=== PATIENT | male | born 1955 | race Caucasian/White ===

== ENCOUNTER 2017-03-18 11:19 | Emergency (ER) | payer SELFPAY ==
[~2017-03-18] VITALS: Ht 182.8 cm; Wt 77.1 kg
[~2017-03-18 11:19] MED LIST: ANTIVERT/2525 M1 PO; CLARITIN10 MG PO; FLONASE ALLERG9.9 ML NAS; PREDNISONE10 MG PO
[2017-03-18 11:53] LABS: BASO % 0.6 % (0.0-1.0); EOS # 0.1 10*3/uL (0.0-0.4); EOS % 1.1 % (1.0-4.0); HEMATOCRIT 43.4 % (42.0-52.0); HEMOGLOBIN 14.9 g/dl (14.0-18.0); LYMPH # 1.5 10*3/uL (1.3-4.4); LYMPH % 23.2 % (27.0-41.0); MEAN CORPUSCULAR HGB 30.2 pg (27.0-31.0); MEAN CORPUSCULAR HGB CONC 34.3 g/dl (33.0-37.0); MEAN PLATELET VOLUME 8.6 fl (9.6-12.3); MONO # 0.6 10*3/uL (0.1-1.0); MONO % 8.6 % (3.0-9.0); NEUT # 4.3 10*3/uL (2.3-7.9); NEUT % 66.2 % (47.0-73.0); PLATELET COUNT AUTOMATED 226 10*3/uL (130-400); RED BLOOD COUNT 4.93 10*6/uL (4.50-5.90); RED CELL DISTRI WIDTH 13.3 % (0-14.5); WHITE BLOOD COUNT 6.5 10*3/uL (4.8-10.8)
[2017-03-18 12:10] LABS: ALBUMIN 3.1 gm/dl (3.1-4.5); ALKALINE PHOSPHATASE 95 U/L (45-117); BUN 6 mg/dl (7-24); CHLORIDE 104 mmol/L (98-107); SGOT/AST 27 IU/L (3-35); SGPT/ALT 27 U/L (12-78); SODIUM 137 mmol/L (136-145); TOTAL PROTEIN 6.8 gm/dL (6.4-8.2)
[2017-03-18 12:11] LABS: ETHYL ALCOHOL < 3.0 mg/dl (<3); TROPONIN I < 0.015 ng/ml (<0.045)
[2017-03-18 13:31] LABS: BILIRUBIN NEGATIVE (NEGATIVE); BLOOD NEGATIVE (NEGATIVE); CLARITY CLEAR (CLEAR); COLOR YELLOW (YELLOW); GLUCOSE NEGATIVE (NEGATIVE); KETONE NEGATIVE (NEGATIVE); LEUKO ESTERASE NEGATIVE (NEGATIVE); NITRITE NEGATIVE (NEGATIVE); UROBILINOGEN 0.2 E.U./dl (0.2-1.0)
[2017-03-18 13:42] LABS: URINE BARBITURATES < 200 (200ng/ml); URINE BENZODIAZEPINES < 200 (200ng/ml); URINE CANNABINOIDS (THC) < 50 (50ng/ml); URINE COCAINE < 300 (300ng/ml); URINE METHADONE < 300 (300ng/ml); URINE OPIATES < 300 (300ng/ml)
[2017-03-18 13:46] LABS: URINE AMPHETAMINES < 1000 (1000ng/ml)
[2017-03-18 13:47] LABS: EPITHELIAL CELLS 0-2; MUCOUS TRACE
[2017-03-18 13:54] LABS: URINE PHENCYCLIDINE < 25 (25ng/ml)
== END 2017-03-18 14:43 | disposition left against medical advice (07) ==
LOC: ED 11:19 → EDBD 11:20 → ED 11:20
PROVIDERS: Emergency Medicine
DX: R55 Syncope and collapse (principal); F17.200 Nicotine dependence, unspecified, uncomplicated; Z79.899 Other long term (current) drug therapy

== ENCOUNTER 2019-02-22 11:02 | Inpatient (IN) | payer MEDICAID ==
[~2019-02-22] VITALS: Ht 177.8 cm; Wt 53.6 kg
[2019-02-22 11:04] VITALS: BP 122/77
[2019-02-22 11:43] LABS: BASO % 0.2 % (0.0-1.0); EOS # 0.1 10*3/uL (0.0-0.4); EOS % 0.4 % (1.0-4.0); HEMATOCRIT 40.6 % (42.0-52.0); HEMOGLOBIN 14.1 g/dl (14.0-18.0); LYMPH # 0.8 10*3/uL (1.3-4.4); LYMPH % 5.7 % (27.0-41.0); MEAN CELL VOLUME 89.6 fl (80.0-94.0); MEAN CORPUSCULAR HGB 31.1 pg (27.0-31.0); MEAN CORPUSCULAR HGB CONC 34.7 g/dl (33.0-37.0); MEAN PLATELET VOLUME 9.5 fl (9.6-12.3); MONO # 1.3 10*3/uL (0.1-1.0); MONO % 9.5 % (3.0-9.0); NEUT # 11.8 10*3/uL (2.3-7.9); NEUT % 83.6 % (47.0-73.0); PLATELET COUNT AUTOMATED 236 10*3/uL (130-400); RED BLOOD COUNT 4.53 10*6/uL (4.50-5.90); RED CELL DISTRI WIDTH 12.2 % (0-14.5); WHITE BLOOD COUNT 14.1 10*3/uL (4.8-10.8)
[2019-02-22 11:54] LABS: ACT PARTIAL THROMBO TIME 31.2 SECONDS (20.0-32.1); INTERNATIONAL NORM RATIO 0.9 (2.0-3.5)
[2019-02-22 12:01] LABS: ALBUMIN 3.4 gm/dl (3.1-4.5); ALKALINE PHOSPHATASE 110 U/L (45-117); BUN 7 mg/dl (7-24); CHLORIDE 99 mmol/L (98-107); CREATININE 0.93 mg/dL (0.70-1.30); POTASSIUM 3.9 mmol/L (3.5-5.1); SGOT/AST 16 IU/L (3-35); SGPT/ALT 18 U/L (12-78); SODIUM 131 mmol/L (136-145); TOTAL PROTEIN 8.1 gm/dL (6.4-8.2)
[2019-02-22 12:08] LABS: TROPONIN I < 0.015 ng/ml (<0.045)
[2019-02-22 12:10] VITALS: BP 113/73
--- NOTE | 2019-02-22 13:03 | NUR ---
MED REC UPDATED. PT TAKES NO ROUTINE MEDICATIONS. IF MEDS ARE PRESCRIBED ON DISCHARGE, PLESE SEND TO [facility] IN [facility],
[2019-02-22 13:05] VITALS: BP 125/75
--- NOTE | 2019-02-22 13:05 | NUR ---
A 63, admitted to 5E, under the services of ALEK Barker DO with a diagnosis of SEPSIS, PNEUMONIA. Chief complaint is SOB, COMMON COLD SXS x2 WEEKS. Patient arrived via ambulatory from ER. Monitor applied. Initial assessment completed. Vital signs taken and recorded. ALEK BARKER DO notified of admission to the unit. Orders received. See assessment for past medical history, medications and allergies. Patient and/or family oriented to unit. [facility] visitation policy reviewed. Clothing/patient valuable form completed. JOSE GARCIA
--- NOTE | 2019-02-22 15:13 | NUR ---
LEFT MESSAGE FOR REGARDING NEW CONSULT. AWAITING CALL BACK.
[2019-02-22 16:00] VITALS: BP 107/61
--- NOTE | 2019-02-22 16:42 | NUR ---
CALLED BACK. ORDER FOR SPUTUM CULTURE REC'D. CUP AT BEDSIDE, PT ACKNOWLEDGES UNDERSTANDING.
[2019-02-22 20:00] VITALS: BP 126/74
[2019-02-23] VITALS: BP 131/76
--- NOTE | 2019-02-23 03:38 | NUR ---
NEW IV STARTED IN PATIENTS RIGHT FOREARM. #20 GAUGE. GREAT BLOOD RETURN. IV FLUIDS RESTARTED. CALL LIGHT WITHIN REACH
[2019-02-23 06:48] LABS: HEMATOCRIT 36.7 % (42.0-52.0); HEMOGLOBIN 12.3 g/dl (14.0-18.0); LYMPH # 0.7 10*3/uL (1.3-4.4); MEAN CELL VOLUME 90.8 fl (80.0-94.0); MEAN CORPUSCULAR HGB 30.4 pg (27.0-31.0); MEAN CORPUSCULAR HGB CONC 33.5 g/dl (33.0-37.0); MEAN PLATELET VOLUME 9.9 fl (9.6-12.3); MONO # 0.6 10*3/uL (0.1-1.0); MONO % 6.7 % (3.0-9.0); NEUT # 7.9 10*3/uL (2.3-7.9); NEUT % 85.5 % (47.0-73.0); PLATELET COUNT AUTOMATED 233 10*3/uL (130-400); RED BLOOD COUNT 4.04 10*6/uL (4.50-5.90); RED CELL DISTRI WIDTH 12.4 % (0-14.5); WHITE BLOOD COUNT 9.3 10*3/uL (4.8-10.8)
[2019-02-23 07:01] LABS: BUN 11 mg/dl (7-24); CHLORIDE 111 mmol/L (98-107); CHOLESTEROL 92 mg/dL (<200); CREATININE 0.95 mg/dL (0.70-1.30); POTASSIUM 3.8 mmol/L (3.5-5.1); SODIUM 141 mmol/L (136-145)
[2019-02-23 07:12] LABS: FREE T4 1.07 ng/dl (0.76-1.46); HDL CHOLESTEROL 32 mg/dl (40-60); LDL CHOLESTEROL 44 mg/dL (9-159); PHOSPHOROUS 1.6 mg/dL (2.5-4.9); THYROID STIM HORMONE (HS) 0.934 uIU/ml (0.358-4.75); TRIGLYCERIDES 82 mg/dl (<150); VLDL CHOLESTEROL 16 mg/dL (6-40)
[2019-02-23 08:00] VITALS: BP 130/70
--- NOTE | 2019-02-23 08:18 | NUR ---
PT RESTING IN BED/ NO DISTRESS NOTED. WILL MONITOR
[2019-02-23 08:19] LABS: VITAMIN D, 25-HYDROXY 34.6 ng/mL (30-100)
[2019-02-23 12:00] VITALS: BP 112/63
--- NOTE | 2019-02-23 12:32 | NUR ---
Binder Operator in to talk to patient. Patient states lives at HOME with FRIENDS. There are FEW steps in the home. Physician: NONE Pharmacy: [facility] Home health services: NONE Patient's level of ADLs: INDEPENDENT Patient has working utilities: YES DME: NONE Follow-up physician's appointment after d/c: WILL FIND ONE AFTER DISCHARGE AND FOLLOW UP Does patient want to access PORTAL?: NO Discharge plan PT STATES HE LIVES AT HOME WITH FRIENDS AND IS INDEPEDENT IN HIS CARE. DENIES THAT HE WILL HAVE NEEDS ON DISCHARGE. STATES HE WILL RETURN HOME WITH FRIENDS. WILL CONTINUE TO FOLLOW. STATES HE WILL HAVE A RIDE HOME.. DIDIER ESTRADA
--- NOTE | 2019-02-23 15:00 | NUR ---
ASSUMED CARE FOR THIS PT AT THIS TIME. PT C/O STUFFY NOSE AND PRODUCTIVE COUGH EXPECTORATING THICK SWANN MUCUS. JVD NOTED D/T COUGING. CALL LIGHT IN REACH.
[2019-02-23 16:00] VITALS: BP 117/65
[2019-02-23 20:00] VITALS: BP 101/68
[2019-02-24] VITALS: BP 121/62
[2019-02-24 08:00] VITALS: BP 126/78
--- NOTE | 2019-02-24 08:11 | NUR ---
PT RESITNG IN BED. NO DISTRESS NOTED. WILL MONITOR
--- NOTE | 2019-02-24 11:59 | NUR ---
PT STATES HE WILL RETURN HOME ON DISCHARGE WITH NO NEW NEEDS. WILL CONTINUE TO FOLLOW.
[2019-02-24 12:00] VITALS: BP 120/71
[2019-02-24 16:00] VITALS: BP 122/69
[2019-02-24 20:00] VITALS: BP 129/75
--- NOTE | 2019-02-24 20:15 | NUR ---
PT RESTING IN BED WITH HOB ELEVATED. RESP-EASY AND REGULAR. NO C/O AT THIS TIME. COWLITZ. CALL LIGHT IN REACH.
--- NOTE | 2019-02-24 22:00 | NUR ---
RESTING IN BED. RESP-EASY AND REGULAR. OXYGEN IN USE AT THIS TIME. CALL LIGHT IN REACH. NO C/O AT THIS TIME.
[2019-02-25] VITALS: BP 137/75
--- NOTE | 2019-02-25 00:30 | NUR ---
PT RESTING IN BED. RESP-EASY AND REGULAR. CALL LIGHT IN REACH. SEE SHIFT ASSESSMENT.
--- NOTE | 2019-02-25 04:00 | NUR ---
SLEEPING IN BED. RESP-EASY AND REGULAR. CALL LIGHT IN REACH.
--- NOTE | 2019-02-25 05:30 | NUR ---
RESTING IN BED WITH EYES CLOSED. RESPE-ASY AND REGULAR. CALL LIGHT IN REACH.
[2019-02-25 08:00] VITALS: BP 144/73
[2019-02-25] MEDS ORDERED: PREDNISONE10 MG PO (11:23)
[2019-02-25] MEDS ORDERED: MUCINEX ER600 MG PO (11:23)
[2019-02-25] MEDS ORDERED: ZITHROMAX500 MG PO (11:23)
--- NOTE | 2019-02-25 11:43 | NUR ---
Discharge instructions reviewed with patient/family. Patient receptive and verbalizes understanding. Follow-up care arranged. Written instructions given to patient/family. LES OWENS
--- NOTE | 2019-02-25 12:13 | NUR ---
PT CONTINUES TO DENY HOME NEEDS ON DISCHARGE. WILL CONTINUE TO FOLLOW.
== END 2019-02-25 11:43 | disposition home or self-care (01) | DRG 193 ==
LOC: ED 11:02 → 5E 11:58 → EDHOLD 11:58 → 5E 12:06
PROVIDERS: Emergency Medicine; ADMIT Internal Medicine
DX: J18.9 Pneumonia, unspecified organism (principal); A41.9 Sepsis, unspecified organism; E87.1 Hypo-osmolality and hyponatremia; J44.1 Chronic obstructive pulmonary disease with (acute) exacerbation; J44.0 Chronic obstructive pulmonary disease with (acute) lower respiratory infection; J20.9 Acute bronchitis, unspecified; D72.9 Disorder of white blood cells, unspecified; D72.810 Lymphocytopenia; F17.210 Nicotine dependence, cigarettes, uncomplicated; Z83.3 Family history of diabetes mellitus; Z83.49 Family history of other endocrine, nutritional and metabolic diseases; Z83.6 Family history of other diseases of the respiratory system; Z71.6 Tobacco abuse counseling

== ENCOUNTER → 2019-03-11 | Outpatient (CLI) | payer MEDICAID ==
[~2019-03-11] MED LIST changes: +MUCINEX ER600 MG PO; +ZITHROMAX500 MG PO
== END | disposition home or self-care (01) ==
LOC: RESCLI 00:54
DX: H91.11 Presbycusis, right ear (principal); R42 Dizziness and giddiness; R63.6 Underweight; F17.210 Nicotine dependence, cigarettes, uncomplicated; R09.89 Other specified symptoms and signs involving the circulatory and respiratory systems; J30.2 Other seasonal allergic rhinitis; Z71.89 Other specified counseling; Z79.899 Other long term (current) drug therapy

== ENCOUNTER 2019-05-22 13:35 | Emergency (ER) | payer MEDICAID ==
[~2019-05-22] VITALS: Ht 180.3 cm; Wt 59.0 kg
[2019-05-22 14:06] LABS: BASO # 0.1 10*3/uL (0.0-0.1); BASO % 0.9 % (0.0-1.0); EOS # 0.3 10*3/uL (0.0-0.4); EOS % 3.5 % (1.0-4.0); HEMATOCRIT 48.8 % (42.0-52.0); HEMOGLOBIN 16.1 g/dl (14.0-18.0); LYMPH # 2.5 10*3/uL (1.3-4.4); LYMPH % 31.3 % (27.0-41.0); MEAN CELL VOLUME 89.5 fl (80.0-94.0); MEAN CORPUSCULAR HGB 29.5 pg (27.0-31.0); MEAN PLATELET VOLUME 9.1 fl (9.6-12.3); MONO # 0.8 10*3/uL (0.1-1.0); MONO % 9.6 % (3.0-9.0); NEUT # 4.3 10*3/uL (2.3-7.9); NEUT % 53.7 % (47.0-73.0); PLATELET COUNT AUTOMATED 270 10*3/uL (130-400); RED BLOOD COUNT 5.45 10*6/uL (4.50-5.90); RED CELL DISTRI WIDTH 12.8 % (0-14.5); WHITE BLOOD COUNT 8.1 10*3/uL (4.8-10.8)
[2019-05-22 14:21] LABS: ALBUMIN 3.8 gm/dl (3.1-4.5); ALKALINE PHOSPHATASE 98 U/L (45-117); BUN 12 mg/dl (7-24); CHLORIDE 105 mmol/L (98-107); CREATININE 0.97 mg/dL (0.70-1.30); LIPASE 294 U/L (73-393); POTASSIUM 3.6 mmol/L (3.5-5.1); SGOT/AST 21 IU/L (3-35); SGPT/ALT 28 U/L (12-78); SODIUM 139 mmol/L (136-145); TOTAL PROTEIN 7.8 gm/dL (6.4-8.2)
[2019-05-22 14:22] LABS: TROPONIN I < 0.015 ng/ml (<0.045)
[2019-05-22 14:38] LABS: ACT PARTIAL THROMBO TIME 28.4 SECONDS (20.0-32.1); INTERNATIONAL NORM RATIO 0.9 (2.0-3.5)
[2019-05-22] MEDS ORDERED: ASPIR LOW81 MG PO (17:36)
== END 2019-05-22 17:35 | disposition left against medical advice (07) ==
LOC: ED 13:35
PROVIDERS: Emergency Medicine
DX: G45.9 Transient cerebral ischemic attack, unspecified (principal); Z79.899 Other long term (current) drug therapy; Z79.2 Long term (current) use of antibiotics; Z87.891 Personal history of nicotine dependence

== ENCOUNTER 2023-07-08 09:34 | Emergency (ER) | payer MEDICARE ==
[~2023-07-08] VITALS: Ht 177.8 cm; Wt 53.5 kg
[~2023-07-08 09:34] MED LIST changes: +ASPIR LOW81 MG PO
[2023-07-08 10:46] LABS: BASO # 0.1 10*3/uL (0.0-0.1); BASO % 0.5 % (0.0-1.0); EOS # 0.3 10*3/uL (0.0-0.4); EOS % 2.2 % (1.0-4.0); HEMATOCRIT 36.7 % (42.0-52.0); LYMPH # 1.5 10*3/uL (1.3-4.4); LYMPH % 9.6 % (27.0-41.0); MEAN CELL VOLUME 82.1 fl (80.0-94.0); MEAN CORPUSCULAR HGB 26.4 pg (27.0-31.0); MEAN CORPUSCULAR HGB CONC 32.2 g/dl (33.0-37.0); MEAN PLATELET VOLUME 8.2 fl (9.6-12.3); MONO # 1.4 10*3/uL (0.1-1.0); MONO % 8.9 % (3.0-9.0); NEUT # 11.9 10*3/uL (2.3-7.9); NEUT % 77.8 % (47.0-73.0); PLATELET COUNT AUTOMATED 567 10*3/uL (130-400); RED BLOOD COUNT 4.47 10*6/uL (4.50-5.90); RED CELL DISTRI WIDTH 13.2 % (0-14.5); WHITE BLOOD COUNT 15.3 10*3/uL (4.8-10.8)
[2023-07-08 11:04] LABS: ACT PARTIAL THROMBO TIME 33.9 SECONDS (20.0-32.1)
[2023-07-08 11:06] LABS: ALKALINE PHOSPHATASE 87 U/L (46-116); BUN 11 mg/dl (9-23); CHLORIDE 97 mmol/L (98-107); POTASSIUM 3.7 mmol/L (3.4-5.1); SGPT/ALT 14 U/L (5-49); TOTAL PROTEIN 8.3 gm/dL (6.0-8.0)
[2023-07-08] MEDS ORDERED: AVPAK AZITHROM250 M1 PO (11:26)
[2023-07-08] MEDS ORDERED: PREDNISONE20 M1 PO (11:26)
== END 2023-07-08 11:29 | disposition left against medical advice (07) ==
LOC: ED 09:34 → EDBD 09:38 → ED 11:29
PROVIDERS: Nurse Practitioner Family
DX: J44.1 Chronic obstructive pulmonary disease with (acute) exacerbation (principal); E87.1 Hypo-osmolality and hyponatremia; R91.8 Other nonspecific abnormal finding of lung field; Z53.29 Procedure and treatment not carried out because of patient's decision for other reasons; F17.200 Nicotine dependence, unspecified, uncomplicated

== ENCOUNTER → 2023-07-18 | Outpatient (CLI) | payer MEDICARE ==
[~2023-07-18] MED LIST changes: +AVPAK AZITHROM250 M1 PO; +IOHEXOL 300 MG/ML 100 ML VIAL IV ONE; +PREDNISONE20 M1 PO
== END | disposition home or self-care (01) ==
LOC: CT 16:00
PROVIDERS: ATTEND Internal Medicine Critical Care Medicine
DX: Z01.818 Encounter for other preprocedural examination (principal); R91.8 Other nonspecific abnormal finding of lung field; I25.10 Atherosclerotic heart disease of native coronary artery without angina pectoris; J98.4 Other disorders of lung; J43.9 Emphysema, unspecified; N26.1 Atrophy of kidney (terminal)

== ENCOUNTER → 2023-07-25 | Outpatient (CLI) | payer MEDICARE ==
[2023-07-25] VITALS (12 sets, daily range): BP systolic 98–118; BP diastolic 59–68
[~2023-07-25] MED LIST changes: +BP PO; +CHOLESTEROL PO; -IOHEXOL 300 MG/ML 100 ML VIAL IV ONE; +POTASSIUM PO
[2023-07-25 10:02] LABS: ACT PARTIAL THROMBO TIME 32.5 SECONDS (20.0-32.1)
== END | disposition home or self-care (01) ==
LOC: LAB 02:25 → CT 02:25
PROVIDERS: ATTEND Internal Medicine Critical Care Medicine
DX: J98.4 Other disorders of lung (principal); J44.9 Chronic obstructive pulmonary disease, unspecified; J98.11 Atelectasis; R22.2 Localized swelling, mass and lump, trunk; Z87.891 Personal history of nicotine dependence; Z79.01 Long term (current) use of anticoagulants

== ENCOUNTER 2023-10-30 06:30 | Inpatient (IN) | payer MEDICARE, MEDICAID ==
[~2023-10-30] VITALS: Ht 177.8 cm; Wt 51.7 kg
[2023-10-30 07:58] LABS: HEMATOCRIT 30.7 % (42.0-52.0); MEAN CELL VOLUME 84.6 fl (80.0-94.0); MEAN CORPUSCULAR HGB 27.8 pg (27.0-31.0); MEAN CORPUSCULAR HGB CONC 32.9 g/dl (33.0-37.0); MEAN PLATELET VOLUME 9.3 fl (9.6-12.3); PLATELET COUNT AUTOMATED 231 10*3/uL (130-400); RED BLOOD COUNT 3.63 10*6/uL (4.50-5.90); RED CELL DISTRI WIDTH 22.9 % (0-14.5); WHITE BLOOD COUNT 3.3 10*3/uL (4.8-10.8)
[2023-10-30 08:00] LABS: MANUAL DIFF REFLEX YES
[2023-10-30 08:09] LABS: ACT PARTIAL THROMBO TIME 30.6 SECONDS (20.0-32.1)
[2023-10-30 08:19] LABS: ALKALINE PHOSPHATASE 86 U/L (46-116); BUN 13 mg/dl (9-23); CHLORIDE 103 mmol/L (98-107); POTASSIUM 4.4 mmol/L (3.4-5.1); SGPT/ALT 9 U/L (5-49); TOTAL PROTEIN 7.7 gm/dL (6.0-8.0)
[2023-10-30 08:33] LABS: BASOPHILS 1 % (0-1); BURR CELLS FEW; PLATELET SUFFICIENCY NORMAL (NORMAL); POLYCHROMASIA SLIGHT; TOTAL CELLS COUNTED 100 #CELLS
[2023-10-30 09:07] VITALS: BP 159/92
[2023-10-30] MEDS ORDERED: IOHEXOL 300 MG/ML 100 ML VIAL IV ONE (09:10)
[2023-10-30] MEDS ORDERED: Acetaminophen/Hydrocodone 5 MG/325 MG TABLET PO PRN (10:50)
[2023-10-30] MEDS ORDERED: BISACODYL 5 MG TAB PO PRN (10:50)
[2023-10-30] MEDS ORDERED: ACETAMINOPHEN 325 MG TAB PO PRN (10:50)
[2023-10-30] MEDS ORDERED: Ondansetron Hydrochloride 4 MG/2 ML VIAL IV PRN (10:50)
[2023-10-30] MEDS ORDERED: MORPHINE Sulfate 2 MG/ML SYR IV PRN (10:50)
[2023-10-30] MEDS ORDERED: FERROUS GLUCON324 MG PO (10:54)
[2023-10-30] MEDS ORDERED: LISINOPRIL10 M1 PO (10:54)
[2023-10-30] MEDS ORDERED: ROSUVASTATIN CA20 MG PO (10:55)
[2023-10-30] MEDS ORDERED: MAGNESIUM SULFATE 50 ML IV ONE (11:50)
[2023-10-30] MEDS ORDERED: Ceftriaxone Sodium 10 ML IV ONE ×2 (12:00→15:35)
[2023-10-30] MEDS ORDERED: AZITHROMYCIN 250 ML IV SCH (12:00)
[2023-10-30] MEDS ORDERED: ANORO ELLIPTA1 EACH INH (13:12)
[2023-10-30] MEDS ORDERED: TRAMADOL HCL25 MG PO (13:13)
[2023-10-30 13:41] VITALS: BP 101/53
[2023-10-30] MEDS ORDERED: Nicotine 21 MG PATCH T SCH (15:30)
[2023-10-30 16:52] VITALS: BP 124/70
[2023-10-30 19:32] VITALS: BP 102/67
[2023-10-31] VITALS (10 sets, daily range): BP systolic 99–120; BP diastolic 55–78
[2023-10-31 05:51] LABS: ALKALINE PHOSPHATASE 79 U/L (46-116); BUN 11 mg/dl (9-23); CHLORIDE 103 mmol/L (98-107); CHOLESTEROL 86 mg/dL (<200); LDL CHOLESTEROL 45 mg/dL (9-159); POTASSIUM 4.3 mmol/L (3.4-5.1); SGPT/ALT 8 U/L (5-49); TOTAL PROTEIN 6.9 gm/dL (6.0-8.0); TRIGLYCERIDES 76 mg/dl (<150)
[2023-10-31 05:57] LABS: HEMATOCRIT 27.2 % (42.0-52.0); MEAN CORPUSCULAR HGB 28.1 pg (27.0-31.0); MEAN CORPUSCULAR HGB CONC 33.5 g/dl (33.0-37.0); MEAN PLATELET VOLUME 9.3 fl (9.6-12.3); PLATELET COUNT AUTOMATED 226 10*3/uL (130-400); RED BLOOD COUNT 3.24 10*6/uL (4.50-5.90); RED CELL DISTRI WIDTH 22.9 % (0-14.5)
[2023-10-31 06:01] LABS: MANUAL DIFF REFLEX YES
[2023-10-31 06:46] LABS: ACT PARTIAL THROMBO TIME 31.6 SECONDS (20.0-32.1)
[2023-10-31 07:17] LABS: PLATELET SUFFICIENCY NORMAL (NORMAL); TOTAL CELLS COUNTED 100 #CELLS
[2023-10-31 07:18] LABS: POLYCHROMASIA SLIGHT
[2023-10-31] MEDS ORDERED: Lidocaine Hydrochloride 4% 5 ML AMP NEB ONE (08:15)
[2023-10-31] MEDS ORDERED: Albuterol Sulfate 2.5 MG/0.5 ML VIAL NEB ONE ×2 (08:15→08:28)
[2023-10-31] MEDS ORDERED: SODIUM CHLORIDE 0.9% 1,000 ML IV ONE (08:23)
[2023-10-31] MEDS ORDERED: Lidocaine Hydrochloride 4% 5 ML AMP ONE (08:28)
[2023-10-31] MEDS ORDERED: Albuterol Sulf/Ipratropium 3 ML VIAL NEB ONE ×2 (08:50→09:09)
[2023-10-31] MEDS ORDERED: LISINOPRIL 10 MG TAB PO SCH (10:00)
[2023-10-31] MEDS ORDERED: Ceftriaxone Sodium 1 GM in SYRINGE INFUSION 10 ML IV SCH (10:00)
[2023-10-31] MEDS ORDERED: ANORO ELLIPTA INH SCH (10:00)
[2023-10-31] MEDS ORDERED: Ceftriaxone Sodium 2 GM,IV 1 EA in SYRINGE INFUSION 20 ML IV SCH (10:00)
[2023-10-31] MEDS ORDERED: ATORVASTATIN CALCIUM 80 MG TAB PO SCH (10:00)
[2023-10-31] MEDS ORDERED: Lidocaine Hydrochloride 2% 10 ML AMP IV ONE (17:34)
[2023-10-31] MEDS ORDERED: PROPOFOL 200 MG/20 ML VIAL IV ONE (17:34)
[2023-11-01 05:47] LABS: BUN 15 mg/dl (9-23); CHLORIDE 103 mmol/L (98-107); POTASSIUM 4.1 mmol/L (3.4-5.1)
[2023-11-01 06:02] LABS: BASO % 0.7 % (0.0-1.0); EOS # 0.1 10*3/uL (0.0-0.4); EOS % 1.4 % (1.0-4.0); HEMATOCRIT 25.9 % (42.0-52.0); LYMPH # 1.2 10*3/uL (1.3-4.4); LYMPH % 29.5 % (27.0-41.0); MEAN CELL VOLUME 84.4 fl (80.0-94.0); MEAN CORPUSCULAR HGB 27.7 pg (27.0-31.0); MEAN CORPUSCULAR HGB CONC 32.8 g/dl (33.0-37.0); MEAN PLATELET VOLUME 9.4 fl (9.6-12.3); MONO # 0.7 10*3/uL (0.1-1.0); MONO % 17.6 % (3.0-9.0); NEUT # 2.1 10*3/uL (2.3-7.9); NEUT % 50.1 % (47.0-73.0); PLATELET COUNT AUTOMATED 215 10*3/uL (130-400); RED BLOOD COUNT 3.07 10*6/uL (4.50-5.90); RED CELL DISTRI WIDTH 22.6 % (0-14.5); WHITE BLOOD COUNT 4.2 10*3/uL (4.8-10.8)
[2023-11-01 08:00] VITALS: BP 107/66
[2023-11-01 12:00] VITALS: BP 120/51
[2023-11-01 13:07] LABS: ACID FAST SPEC PROCESSING Concentration (.)
[2023-11-01 16:00] VITALS: BP 122/52
[2023-11-01 20:00] VITALS: BP 116/62
[2023-11-02] VITALS: BP 101/78
[2023-11-02 08:00] VITALS: BP 137/54
[2023-11-02 12:00] VITALS: BP 102/62
[2023-11-02] MEDS ORDERED: CIPRO500 MG PO (13:19)
[2023-11-02] MEDS ORDERED: CIPROFLOXACIN750 MG PO (13:28)
[2023-11-02] MEDS ORDERED: HEPARIN SODIUM 300 UNITS/3 ML SYR IV ONE (14:40)
== END 2023-11-02 15:16 | disposition home or self-care (01) | DRG 871 ==
LOC: ED 06:30 → EDHOLD 10:34 → 4E 10:34
PROVIDERS: Emergency Medicine; Internal Medicine Critical Care Medicine; Student in an Organized Health Care Education/Training Program; ADMIT Internal Medicine; ATTEND Internal Medicine
PROC: 0BC18ZZ Extirpation of Matter from Trachea, Via Natural or Artificial Opening Endoscopic (ICD-10-PCS; principal; 2023-10-31)
PROC: 0BC98ZZ Extirpation of Matter from Lingula Bronchus, Via Natural or Artificial Opening Endoscopic (ICD-10-PCS; 2023-10-31)
PROC: 0BC48ZZ Extirpation of Matter from Right Upper Lobe Bronchus, Via Natural or Artificial Opening Endoscopic (ICD-10-PCS; 2023-10-31)
PROC: 0BC88ZZ Extirpation of Matter from Left Upper Lobe Bronchus, Via Natural or Artificial Opening Endoscopic (ICD-10-PCS; 2023-10-31)
PROC: 0BC58ZZ Extirpation of Matter from Right Middle Lobe Bronchus, Via Natural or Artificial Opening Endoscopic (ICD-10-PCS; 2023-10-31)
PROC: 0BC38ZZ Extirpation of Matter from Right Main Bronchus, Via Natural or Artificial Opening Endoscopic (ICD-10-PCS; 2023-10-31)
PROC: 0BC78ZZ Extirpation of Matter from Left Main Bronchus, Via Natural or Artificial Opening Endoscopic (ICD-10-PCS; 2023-10-31)
PROC: 0BC68ZZ Extirpation of Matter from Right Lower Lobe Bronchus, Via Natural or Artificial Opening Endoscopic (ICD-10-PCS; 2023-10-31)
PROC: 0BCB8ZZ Extirpation of Matter from Left Lower Lobe Bronchus, Via Natural or Artificial Opening Endoscopic (ICD-10-PCS; 2023-10-31)
DX: A41.9 Sepsis, unspecified organism (principal); J18.9 Pneumonia, unspecified organism; E44.1 Mild protein-calorie malnutrition; R04.2 Hemoptysis; E87.1 Hypo-osmolality and hyponatremia; C34.11 Malignant neoplasm of upper lobe, right bronchus or lung; Z68.1 Body mass index [BMI] 19.9 or less, adult; J44.0 Chronic obstructive pulmonary disease with (acute) lower respiratory infection; R91.8 Other nonspecific abnormal finding of lung field; I10 Essential (primary) hypertension; E78.5 Hyperlipidemia, unspecified; T45.1X5A Adverse effect of antineoplastic and immunosuppressive drugs, initial encounter; D70.1 Agranulocytosis secondary to cancer chemotherapy; D64.9 Anemia, unspecified; R73.9 Hyperglycemia, unspecified; B96.89 Other specified bacterial agents as the cause of diseases classified elsewhere; E83.42 Hypomagnesemia; J43.9 Emphysema, unspecified; G89.3 Neoplasm related pain (acute) (chronic); R53.81 Other malaise; B96.5 Pseudomonas (aeruginosa) (mallei) (pseudomallei) as the cause of diseases classified elsewhere; Z85.118 Personal history of other malignant neoplasm of bronchus and lung; Z92.21 Personal history of antineoplastic chemotherapy; Z83.3 Family history of diabetes mellitus; Z83.6 Family history of other diseases of the respiratory system; Z86.73 Personal history of transient ischemic attack (TIA), and cerebral infarction without residual deficits

== ENCOUNTER 2023-11-30 12:39 | Emergency (ER) | payer MEDICARE, MEDICAID ==
[~2023-11-30] VITALS: Ht 177.8 cm; Wt 53.1 kg
[~2023-11-30 12:39] MED LIST changes: +ANORO ELLIPTA1 EACH INH; +CIPRO500 MG PO; +CIPROFLOXACIN750 MG PO; +FERROUS GLUCON324 MG PO; +LISINOPRIL10 M1 PO; +ROSUVASTATIN CA20 MG PO; +TRAMADOL HCL25 MG PO
[2023-11-30 14:59] LABS: BASO % 0.5 % (0.0-1.0); EOS # 0.4 10*3/uL (0.0-0.4); HEMATOCRIT 30.7 % (42.0-52.0); LYMPH # 1.2 10*3/uL (1.3-4.4); LYMPH % 21.8 % (27.0-41.0); MEAN CELL VOLUME 93.9 fl (80.0-94.0); MEAN CORPUSCULAR HGB 29.4 pg (27.0-31.0); MEAN CORPUSCULAR HGB CONC 31.3 g/dl (33.0-37.0); MEAN PLATELET VOLUME 9.4 fl (9.6-12.3); MONO # 0.3 10*3/uL (0.1-1.0); MONO % 5.6 % (3.0-9.0); NEUT # 3.5 10*3/uL (2.3-7.9); NEUT % 63.4 % (47.0-73.0); PLATELET COUNT AUTOMATED 308 10*3/uL (130-400); RED BLOOD COUNT 3.27 10*6/uL (4.50-5.90); RED CELL DISTRI WIDTH 19.7 % (0-14.5); WHITE BLOOD COUNT 5.5 10*3/uL (4.8-10.8)
[2023-11-30 15:09] LABS: ACT PARTIAL THROMBO TIME 31.6 SECONDS (20.0-32.1)
[2023-11-30 15:15] LABS: ALKALINE PHOSPHATASE 102 U/L (46-116); BUN 10 mg/dl (9-23); CHLORIDE 101 mmol/L (98-107); POTASSIUM 3.7 mmol/L (3.4-5.1); SGPT/ALT 9 U/L (5-49); TOTAL PROTEIN 8.2 gm/dL (6.0-8.0)
[2023-11-30] MEDS ORDERED: AZITHROMYCIN 250 MG TAB PO ONE (15:20)
[2023-11-30] MEDS ORDERED: AVPAK AZITHROM250 M1 PO (15:22)
[2023-11-30] MEDS ORDERED: OMNICEF300 MG PO (15:22)
[2023-11-30] MEDS ORDERED: MAGNESIUM OXIDE 400 MG TAB PO ONE (15:25)
[2023-11-30] MEDS ORDERED: methylPREDNISolone sod succ 125 MG VIAL ONE (15:44)
== END 2023-11-30 15:48 | disposition home or self-care (01) ==
LOC: ED 12:39
PROVIDERS: Internal Medicine
DX: J40 Bronchitis, not specified as acute or chronic (principal); F17.200 Nicotine dependence, unspecified, uncomplicated